=== PATIENT | male | born 1970 | race Two or more races ===

== ENCOUNTER → 2016-10-21 | Outpatient (CLI) | payer OTHER ==
--- NOTE | 2016-10-21 11:58 | RAD ---
Left knee, 3 views, 10/21/2016: History: Hyperextension of knee No acute fracture or dislocation is identified. There is tendinous calcification at the patellar tendon insertion site on the lower pole of the patella. There is minimal posterior patellar spurring. IMPRESSION: No acute bony abnormality is detected.
== END | disposition home or self-care (01) ==
LOC: DXRADRC 10:25
PROVIDERS: ATTEND General Practice
DX: S89.82XA Other specified injuries of left lower leg, initial encounter (principal)
CPT/HCPCS: 73562